=== PATIENT | female | born 1955 | race Asian ===

== ENCOUNTER 2020-06-09 16:57 | Inpatient (IN) | payer OTHER ==
[~2020-06-09] VITALS: Ht 154.9 cm; Wt 46.7 kg
--- NOTE | 2020-06-09 17:25 | NUR ---
PT STATES TODAY SHE STARTED HAVING CONFUSION. FOR EXAMPLE SHE STATES "I'VE HAD MY CAR FOR A WHILE, THEN I SAT IN IT AND DIDN'T KNOW HOW TO START IT" DR. CONCEPCION AT BEDSIDE FOR EVALUATION. MILD L. FACIAL DROOP OBSERVED. CODE NEURO CALLED AT [id number]. BS 102
--- NOTE | 2020-06-09 17:37 | NUR ---
pt to [place] with this jennifer rn and michael worrell. house sup present.
--- NOTE | 2020-06-09 17:41 | NUR ---
PT BACK FROM CT. ATTACHED TO ALL MONITOS. SATINDER. LORIN. [facility] PARAMEDIC TO BEDSIDE.
--- NOTE | 2020-06-09 17:46 | NUR ---
PT STATING SHE LAST FELT NORMAL AROUND 1300. PT STATING SHE JUST DIDN'T FEEL RIGHT AND SHE COULDN'T DO STUFF. SLOW AND STRUGGLING TO ANSWER QUESTIONS OR FORM SENTENCES.
[2020-06-09] MEDS ORDERED: OMNIPAQUE 350 MG/ML, 75ML BOTTLE ONE (17:51)
[2020-06-09 17:58] LABS: BASOPHILS % (AUTO) 1 % (0-1); EOSINOPHILS % (AUTO) 3 % (1-7); LYMPHOCYTES % (AUTO) 29 % (22-44); MD NO; MEAN CORPUSCULAR HEMOGLOBIN 22.7 pg (27.0-34.8); MEAN CORPUSCULAR HGB CONC 31.6 g/dL (32.4-35.8); MONOCYTES % (AUTO) 7 % (2-9); NEUTROPHILS % (AUTO) 61 % (42-75); PLATELET COUNT 247 x10^3/uL (130-400); RED BLOOD COUNT 5.14 x10^6/uL (3.82-5.3); RED CELL DISTRIBUTION WIDTH 16.2 % (9.6-15.2)
[2020-06-09 18:08] LABS: INTERNATIONAL NORMALIZED RATIO 1.05 (0.93-1.1); PROTHROMBIN TIME 11.2 Seconds (9.6-11.5)
--- NOTE | 2020-06-09 18:54 | NUR ---
REPORT GIVEN TO LENNY FAULKNER
--- NOTE | 2020-06-09 19:02 | NUR ---
REPORT FROM KENNETH ASSUMED CARE OF PT
--- NOTE | 2020-06-09 19:03 | NUR ---
REPORT FROM KENNETH ASSUMED CARE OF PT
--- NOTE | 2020-06-09 19:34 | NUR ---
PT HR TO [address] CONCEPCION NOTIFIED
[2020-06-09] MEDS ORDERED: LISI-606 PO (19:58)
[2020-06-09] MEDS ORDERED: NIFE10CA PO (19:58)
[2020-06-09] MEDS ORDERED: DOCUSATE 100 MG CAPSULE PO PRN (20:30)
[2020-06-09] MEDS ORDERED: POLYETHYLENE GLYCOL 17 GM PACKET PO PRN (20:30)
[2020-06-09] MEDS ORDERED: ONDANSETRON 4 MG TABLET PO PRN (20:30)
[2020-06-09] MEDS ORDERED: BISACODYL 10 MG SUPP PR PRN (20:30)
[2020-06-09] MEDS ORDERED: ACETAMINOPHEN 650 MG/20.3 ML UDC PO PRN (20:30)
[2020-06-09 20:38] VITALS: BP 123/75
[2020-06-09] MEDS ORDERED: ATORVASTATIN 40 MG TABLET PO SCH (21:00)
[2020-06-09 21:31] VITALS: BP 123/75
[2020-06-09 22:04] VITALS: BP 133/71
[2020-06-10] VITALS (7 sets, daily range): BP systolic 106–118; BP diastolic 66–77
[2020-06-10] MEDS ORDERED: ASPIRIN 81 MG TABLET EC PO SCH (06:00)
[2020-06-10 06:09] LABS: CHOL/HDL RATIO 2.6; LDL/HDL RATIO 1.3 (0.5-3.0)
[2020-06-10] MEDS ORDERED: LISINOPRIL 5 MG TABLET PO SCH (09:00)
[2020-06-10] MEDS ORDERED: niFEDipine ER 30 MG TABLET.ER PO SCH (09:00)
[2020-06-10] MEDS ORDERED: ATOR40TA78 PO (13:43)
[2020-06-10] MEDS ORDERED: ASPI81TA45 PO (13:43)
== END 2020-06-10 16:50 | disposition home or self-care (01) | DRG 69 ==
LOC: ED 20:04 → EDIP 20:09 → 4EST 20:22 → DCLOUNGE 06-10 16:40
DX: G45.9 Transient cerebral ischemic attack, unspecified (principal); R47.01 Aphasia; R29.810 Facial weakness; I10 Essential (primary) hypertension; R00.0 Tachycardia, unspecified
CPT/HCPCS: 36415; 70450; 70496; 70498; 70551; 80047; 80061; 82728; 82962; 83540; 83550; 85025; 85610; 85730; 93005; 93306; 93356; 99285; G0378; Q9967